=== PATIENT | male | born 1955 | race Caucasian/White ===

== ENCOUNTER 2017-10-13 13:40 | Emergency (ER) | payer MEDICARE ==
--- NOTE | 2017-10-13 14:32 | ED ---
General Adult HPI - General Chief complaint: Psychiatric Symptoms Stated complaint: ETOH/suicidal Time Seen by Provider: 10/13/17 13:56 Source: patient, EMS, RN notes reviewed Mode of arrival: wheelchair Limitations: no limitations - History of Present Illness Initial comments: If complaint and history of present illness a 62-year-old male who was brought emergency room by EMS. He had a petition filled out by police magistrate. The patient states that he had an appointment to see an infectious disease doctor this morning. He states he had difficulty getting there because correction did not call for a bus ride for him he had a take a taxi which made him upset because he had a paper that. While he was at the doctor's office he apparently was angry and agitated because of having to pay for the taxi. He then reportedly went and had breakfast and a bloody Mariann. When he returned to the rehab center he said things that cause the police to be called. The police magistrate reported that after he returned from an off site doctor's appointment intoxicated and threatening to jump out of the window and shoot himself in the head with 44. Patient was sent here for evaluation. Patient states to me that he was just aggravated because of circumstances. Denies desire to hurt himself. States he had his PICC line removed today. He has 2 more days at the rehab center before he gets to go home to take care of his dogs which is his only concern. When the patient arrived his vital signs showed pulse 1/24 blood pressure 96/ 54. I asked the nurse to repeat this. Heart rate came 110 with a blood pressure drop to 70/50. We changed the cuff and the blood pressure machine and it came back 90/60. Further evaluation to continue. Again the patient denies any chest pain, no abdominal pain, no blood or black stool. His breath alcohol was 0.149. - Related Data Home Medications Medication Instructions Recorded Confirmed Gabapentin 600 mg PO HS 10/13/17 10/13/17 Lisinopril [Zestril] 20 mg PO DAILY 10/13/17 10/13/17 Allergies Allergy/AdvReac Type Severity Reaction Status Date / Time No Known Allergies Allergy Verified 10/13/17 14:08 Review of Systems ROS Statement: Those systems with pertinent positive or pertinent negative responses have been documented in the HPI. Review of systems patient denies headache no chest pain or shortness of breath no GI/ problems. The patient at this time denies being depressed. He does say he is aggravated by having to pay for things that he can afford he is on a fixed income. Patient readily admits had a bloody Mariann when he had breakfast. All systems are reviewed Past medical problems on Xarelto for left DVT. He had an infection in the left wrist area. Spent a week in hospital. Eventually discharged on IV antibiotics and was at [facility]. Surgeries include tendon muscle surgery 1997. Previous fractured left ankle no surgery. He's also had tonsillectomy. Family history patient denies any cancers in the family.. The patient denies any ALLERGIES. He does smoke 12 cigarettes per day. He does report he did have 1 drink today jarrod Waite. ROS Other: All systems not noted in ROS Statement are negative. Past Medical History Past Medical History: No Reported History Additional Past Medical History / Comment(s): fractured left ankle History of Any Multi-Drug Resistant Organisms: None Reported Past Surgical History: Orthopedic Surgery Additional Past Surgical History / Comment(s): right arm, left ankle Past Psychological History: No Psychological Hx Reported Smoking Status: Current every day smoker Past Alcohol Use History: Daily Past Drug Use History: Marijuana General Exam - General Exam Comments Initial Comments: General: The patient is awake and alert, angry has to be here but denies any distress medically.in no distress, and does not appear acutely ill. vital signs temperature 97.5 initial pulse rate 124 while being agitated upon arrival to emergency room. Also respiratory rate 20 initial blood pressure 96/54. He denies any nausea vomiting diarrhea or blood loss. Pulse ox 95% room air Eye: Pupils are equal, round and reactive to light, extra-ocular movements are intact ; there is normal conjunctiva bilaterally. No signs of icterus. Ears, nose, mouth and throat: There are moist mucous membranes and no oral lesions. Neck: The neck is supple, there is no tenderness . Cardiovascular: regular rate and rhythm. No murmur. Respiratory: Lungs are clear to auscultation, respirations are non-labored, breath sounds are equal. No wheezes, stridor, rales, or rhonchi. Gastrointestinal: Soft, non-distended, non-tender abdomen without masses or organomegaly noted. There is no rebound or guarding present. No CVA tenderness. Bowel sounds are unremarkable. Back: There is no tenderness to palpation in the midline. There is no obvious deformity. No rashes noted. Musculoskeletal: Normal ROM, no tenderness, There is no pedal edema. There is no calf tenderness or swelling. Sensation intact. no complaints of any pain to the extremities Neurological: CN II-XII intact, There are no obvious motor or sensory deficits. Coordination appears grossly intact. Speech is normal.no focal or lateralizing findings Skin: Skin is warm and dry and no rashes or lesions are noted. Psychiatric: Cooperative, patient states she is admittedly angry and agitated because he had to pay for a taxi to his doctor's office which he almost missed. He then took a bus back to his rehab center but stopped on the way to have breakfast and he admits to having had one bloody Mariann. When he got back to them nursing facility he was angry because of what happened. When he arrived here he is angry because he had to take an ambulance to our emergency room. All these things he states costing him money and he can't afford on his fixed income. Again denying homicidal or suicidal thoughts. He states he is just "pissed". Limitations: no limitations Course Vital Signs 10/13/17 10/13/17 13:46 15:36 Temperature 97.5 F L Pulse Rate 124 H 100 Respiratory 20 18 Rate Blood Pressure 96/54 99/64 O2 Sat by Pulse 95 97 Oximetry EKG Findings - EKG Comments: EKG Findings:: EKG was done and reviewed at 1516 showing normal sinus rhythm rate 99. No acute service no ectopy no ischemic changes. RI interval is 152 QRS 88 QT [address] Darby. Currently no old EKG available to compare to. Medical Decision Making - Medical Decision Making Medical decision making; this is a 62-year-old male who was brought emergency room from the correction. The patient was agitated and more angry at the correction because of circumstances that happened this morning when he had to go see his infectious disease doctor. Because he said some things and anger please were called and the police filled out a petition for evaluation. Emergency room the patient's agitated changes significantly. Denied being anything other than angry at having to pay for think she didn't want to pay for. Initial vital signs upon arrival to emergency room for blood pressure 96/ 54. Soon thereafter was repeated statement that same range of 90/60. A BP machine had shown a blood pressure 70/40 with a machine was changed over to another one. Patient received 2 L of fluid and his blood pressure this time is 110/80. At no time to the patient feel short of breath, chest pain, or dizzy. EKG did not show any acute changes. Patient's labs show white count of 5.8 hemoglobin 13 hematocrit of 38. Stool guaiac was negative. BUN was 16 creatinine 1.2 GFR 64. Stool guaiac is noted above is negative. INR 1.2. Patient's breath alcohol was 0.149 earlier. Is now below legally intoxicated. And the patient has been from the beginning answer questions appropriately. His MB fraction was elevated at 3.6 and his lactic acid was 2.6. The patient was advised to stay in hospital for one night for observation because of initial low blood pressure. The patient declines. The patient is going back to the correction where his vital signs can be monitored.. Patient will be asked to sign out AGAINST MEDICAL ADVICE. patient is not depressed or suicidal. I completed a de-certain the patient to be discharged and follow up with his physician. Advised not to take any antihypertensive medications. The patient is not sure what all his medications are. - Lab Data Result diagrams: 10/13/17 14:58 10/13/17 14:51 Lab Results 10/13/17 10/13/17 10/13/17 Range/Units 14:51 14:51 14:51 WBC (3.8-10.6) k/uL RBC (4.30-5.90) m/uL Hgb (13.0-17.5) gm/dL Hct (39.0-53.0) % MCV (80.0-100.0) fL MCH (25.0-35.0) pg MCHC (31.0-37.0) g/dL RDW (11.5-15.5) % Plt Count (150-450) k/uL Neutrophils % % Lymphocytes % % Monocytes % % Eosinophils % % Basophils % % Neutrophils # (1.3-7.7) k/uL Lymphocytes # (1.0-4.8) k/uL Monocytes # (0-1.0) k/uL Eosinophils # (0-0.7) k/uL Basophils # (0-0.2) k/uL PT 11.4 (9.0-12.0) sec INR 1.2 H (<1.2) Sodium 147 H (137-145) mmol/L Potassium 4.1 (3.5-5.1) mmol/L Chloride 110 H (98-107) mmol/L Carbon Dioxide 23 (22-30) mmol/L Anion Gap 14 mmol/L BUN 16 (9-20) mg/dL Creatinine 1.20 (0.66-1.25) mg/dL Est GFR (CKD-EPI)AfAm 74 (>60 ml/min/1.73 sqM) Est GFR (CKD-EPI)NonAf 64 (>60 ml/min/1.73 sqM) Glucose 104 H (74-99) mg/dL Plasma Lactic Acid Uz[place] (0.7-2.0) mmol/L Calcium 9.6 (8.4-10.2) mg/dL Total Bilirubin 0.3 (0.2-1.3) mg/dL AST 22 (17-59) U/L ALT 10 L (21-72) U/L Alkaline Phosphatase 49 (38-126) U/L Total Creatine Kinase 126 (55-170) U/L CK-MB (CK-2) 3.6 H* (0.0-2.4) ng/mL CK-MB (CK-2) Rel Index 2.9 Troponin I <0.012 (0.000-0.034) ng/mL Total Protein 6.4 (6.3-8.2) g/dL Albumin 3.8 (3.5-5.0) g/dL Amylase 69 (30-110) U/L Lipase 147 (23-300) U/L Urine Color Urine Appearance (Clear) Urine pH (5.0-8.0) Ur Specific [place] (1.001-1.035) Urine Protein (Negative) Urine Glucose (UA) (Negative) Urine Ketones (Negative) Urine Blood (Negative) Urine Nitrite (Negative) Urine Bilirubin (Negative) Urine Urobilinogen (<2.0) mg/dL Ur Leukocyte Esterase (Negative) Urine RBC (0-5) /hpf Urine WBC (0-5) /hpf Urine Bacteria (None) /hpf Hyaline Casts (0-2) /lpf Urine Mucus (None) /hpf Stool Occult Blood (Negative) 10/13/17 10/13/17 10/13/17 Range/Units 14:58 14:58 15:28 WBC 5.8 (3.8-10.6) k/uL RBC 4.15 L (4.30-5.90) m/uL Hgb 13.5 (13.0-17.5) gm/dL Hct 38.5 L (39.0-53.0) % MCV 92.7 (80.0-100.0) fL MCH 32.6 (25.0-35.0) pg MCHC 35.1 (31.0-37.0) g/dL RDW 13.2 (11.5-15.5) % Plt Count 176 (150-450) k/uL Neutrophils % 57 % Lymphocytes % 30 % Monocytes % 7 % Eosinophils % 4 % Basophils % 1 % Neutrophils # 3.3 (1.3-7.7) k/uL Lymphocytes # 1.7 (1.0-4.8) k/uL Monocytes # 0.4 (0-1.0) k/uL Eosinophils # 0.2 (0-0.7) k/uL Basophils # 0.0 (0-0.2) k/uL PT (9.0-12.0) sec INR (<1.2) Sodium (137-145) mmol/L Potassium (3.5-5.1) mmol/L Chloride (98-107) mmol/L Carbon Dioxide (22-30) mmol/L Anion Gap mmol/L BUN (9-20) mg/dL Creatinine (0.66-1.25) mg/dL Est GFR (CKD-EPI)AfAm (>60 ml/min/1.73 sqM) Est GFR (CKD-EPI)NonAf (>60 ml/min/1.73 sqM) Glucose (74-99) mg/dL Plasma Lactic Acid Uzair 2.6 H* (0.7-2.0) mmol/L Calcium (8.4-10.2) mg/dL Total Bilirubin (0.2-1.3) mg/dL AST (17-59) U/L ALT (21-72) U/L Alkaline Phosphatase (38-126) U/L Total Creatine Kinase (55-170) U/L CK-MB (CK-2) (0.0-2.4) ng/mL CK-MB (CK-2) Rel Index Troponin I (0.000-0.034) ng/mL Total Protein (6.3-8.2) g/dL Albumin (3.5-5.0) g/dL Amylase (30-110) U/L Lipase (23-300) U/L Urine Color Urine Appearance (Clear) Urine pH (5.0-8.0) Ur Specific [place] (1.001-1.035) Urine Protein (Negative) Urine Glucose (UA) (Negative) Urine Ketones (Negative) Urine Blood (Negative) Urine Nitrite (Negative) Urine Bilirubin (Negative) Urine Urobilinogen (<2.0) mg/dL Ur Leukocyte Esterase (Negative) Urine RBC (0-5) /hpf Urine WBC (0-5) /hpf Urine Bacteria (None) /hpf Hyaline Casts (0-2) /lpf Urine Mucus (None) /hpf Stool Occult Blood Negative (Negative) 10/13/17 Range/Units 15:37 WBC (3.8-10.6) k/uL RBC (4.30-5.90) m/uL Hgb (13.0-17.5) gm/dL Hct (39.0-53.0) % MCV (80.0-100.0) fL MCH (25.0-35.0) pg MCHC (31.0-37.0) g/dL RDW (11.5-15.5) % Plt Count (150-450) k/uL Neutrophils % % Lymphocytes % % Monocytes % % Eosinophils % % Basophils % % Neutrophils # (1.3-7.7) k/uL Lymphocytes # (1.0-4.8) k/uL Monocytes # (0-1.0) k/uL Eosinophils # (0-0.7) k/uL Basophils # (0-0.2) k/uL PT (9.0-12.0) sec INR (<1.2) Sodium (137-145) mmol/L Potassium (3.5-5.1) mmol/L Chloride (98-107) mmol/L Carbon Dioxide (22-30) mmol/L Anion Gap mmol/L BUN (9-20) mg/dL Creatinine (0.66-1.25) mg/dL Est GFR (CKD-EPI)AfAm (>60 ml/min/1.73 sqM) Est GFR (CKD-EPI)NonAf (>60 ml/min/1.73 sqM) Glucose (74-99) mg/dL Plasma Lactic Acid [place] (0.7-2.0) mmol/L Calcium (8.4-10.2) mg/dL Total Bilirubin (0.2-1.3) mg/dL AST (17-59) U/L ALT (21-72) U/L Alkaline Phosphatase (38-126) U/L Total Creatine Kinase (55-170) U/L CK-MB (CK-2) (0.0-2.4) ng/mL CK-MB (CK-2) Rel Index Troponin I (0.000-0.034) ng/mL Total Protein (6.3-8.2) g/dL Albumin (3.5-5.0) g/dL Amylase (30-110) U/L Lipase (23-300) U/L Urine Color Yellow Urine Appearance Clear (Clear) Urine pH 6.0 (5.0-8.0) Ur Specific [place] 1.008 (1.001-1.035) Urine Protein 1+ H (Negative) Urine Glucose (UA) Negative (Negative) Urine Ketones Negative (Negative) Urine Blood Negative (Negative) Urine Nitrite Negative (Negative) Urine Bilirubin Negative (Negative) Urine Urobilinogen <2.0 (<2.0) mg/dL Ur Leukocyte Esterase Negative (Negative) Urine RBC 1 (0-5) /hpf Urine WBC 1 (0-5) /hpf Urine Bacteria Rare H (None) /hpf Hyaline Casts 1 (0-2) /lpf Urine Mucus Rare H (None) /hpf Stool Occult Blood (Negative) Disposition Clinical Impression: Acute anxiety, Alcohol intoxication Disposition: Left Against Medical Advice Condition: Fair Instructions: Generalized Anxiety Disorder (ED) Additional Instructions: Stay hydrated, do not take any blood pressure pills the next 2 days. Follow-up with family physician. If he develop any discomfort return emergency room immediately. No alcohol. Referrals: Maite Duncan MD [Primary Care Provider] - 1-2 days Time of Disposition: 16:59
[2017-10-13] MEDS ORDERED: SODIUM CHLORIDE 0.9% 2,000 ML IV STA (14:47)
[2017-10-13 15:14] LABS: INR 1.2 (<1.2); Prothrombin Time 11.4 sec (9.0-12.0)
[2017-10-13 15:29] LABS: Albumin 3.8 g/dL (3.5-5.0); Calcium 9.6 mg/dL (8.4-10.2); Potassium 4.1 mmol/L (3.5-5.1); Total Bilirubin 0.3 mg/dL (0.2-1.3); Total Protein 6.4 g/dL (6.3-8.2)
[2017-10-13 15:30] LABS: Creatine Kinase 126 U/L (55-170)
[2017-10-13 15:37] VITALS: PULSE 100; RESP 18
[2017-10-13 15:43] LABS: Troponin I <0.012 ng/mL (0.000-0.034)
[2017-10-13 15:46] LABS: Creatine Kinase MB 3.6 ng/mL (0.0-2.4)
[2017-10-13 15:59] LABS: Appearance,Urine Clear (Clear); Bacteria,Urine Rare /hpf; Bilirubin,Urine Negative (Negative); Blood,Urine Negative (Negative); Color,Urine Yellow; Glucose,Urine (UA) Negative (Negative); Hyaline Casts,Urine 1 /lpf (0-2); Ketones,Urine Negative (Negative); Leukocyte Esterase,Urine Negative (Negative); Mucus,Urine Rare /hpf; Nitrite,Urine Negative (Negative); Protein,Urine 1+ (Negative); RBC,Urine 1 /hpf (0-5); Specific Gravity,Urine 1.008 (1.001-1.035); Urobilinogen,Urine <2.0 mg/dL (<2.0); WBC,Urine 1 /hpf (0-5)
[2017-10-13 16:26] LABS: Basophils % (A) 1 %; Eosinophils # (A) 0.2 k/uL (0-0.7); Eosinophils % (A) 4 %; HCT 38.5 % (39.0-53.0); HGB 13.5 gm/dL (13.0-17.5); Lymphocytes # (A) 1.7 k/uL (1.0-4.8); Lymphocytes % (A) 30 %; MCH 32.6 pg (25.0-35.0); MCHC 35.1 g/dL (31.0-37.0); MCV 92.7 fL (80.0-100.0); Mean Platelet Volume 7.4; Monocytes # (A) 0.4 k/uL (0-1.0); Monocytes % (A) 7 %; Neutrophils # (A) 3.3 k/uL (1.3-7.7); Neutrophils % (A) 57 %; Platelet Count 176 k/uL (150-450); RBC 4.15 m/uL (4.30-5.90); RDW 13.2 % (11.5-15.5); WBC 5.8 k/uL (3.8-10.6)
[2017-10-13 23:49] VITALS: BP 108/66; TEMP 98
== END 2017-10-13 17:00 | disposition left against medical advice (07) ==
LOC: EC 13:40
DX: F41.9 Anxiety disorder, unspecified (principal); F10.120 Alcohol abuse with intoxication, uncomplicated; F17.210 Nicotine dependence, cigarettes, uncomplicated; Z79.899 Other long term (current) drug therapy
CPT/HCPCS: 36415; 80053; 81001; 82075; 82150; 82272; 82550; 82553; 83605; 83690; 84484; 85025; 85610; 87086; 93005; 96360; 99284